=== PATIENT | female | born 1950 | race Caucasian/White ===

== ENCOUNTER 2019-08-02 10:02 | Emergency (ER) | payer MEDICARE ==
[~2019-08-02] VITALS: Ht 165.1 cm; Wt 67.0 kg
[~2019-08-02 10:02] MED LIST: ANTIVERT PO; ASPIRIN LOW DOS81 M2 PO; B COMPLE2 PO; C 250 PO; CO-Q 101 CAP PO; FIBER THERAPY500 MG PO; FOLIC ACID1 MG PO; MAGNESIUM-OX400 MG PO; MULTI VIT PO; NIACIN500 M2 PO; PROBIOTIC1 TAB PO; RED YEAST RICE EXTRA; ZOFRAN ODT4 MG PO; [UNRECOGNIZED DRUG - OTHER]
[2019-08-02] MEDS ORDERED: VOLTAREN - GENE75 MG PO (11:40)
[2019-08-02 11:54] VITALS: BP 128/74
== END 2019-08-02 12:02 | disposition home or self-care (01) ==
LOC: ED 10:02
DX: M19.041 Primary osteoarthritis, right hand (principal)

== ENCOUNTER 2022-09-18 09:40 | Emergency (ER) | payer MEDICARE ==
[2022-09-18] VITALS (7 sets, daily range): BP systolic 122–149; BP diastolic 58–77
[~2022-09-18] VITALS: Ht 165.1 cm; Wt 68.0 kg
[~2022-09-18 09:40] MED LIST changes: +VOLTAREN - GENE75 MG PO
[2022-09-18 10:04] LABS: HEMATOCRIT 41.6 % (37.0-47.0); HEMOGLOBIN 14.3 g/dl (12.0-16.0); IMMATURE GRANULOCYTES 0.3 % (0.0-5.0); MEAN CELL VOLUME 90.6 fL CALC (80.0-100.0); MEAN CORPUSCULAR HGB 31.2 pG CALC (26.0-32.0); MEAN CORPUSCULAR HGB CONC 34.4 g/dL CAL (32.0-36.0); NEUT# 5.97 thou/uL (2.00-7.15); RED BLOOD COUNT 4.59 mill/uL (4.20-5.60)
[2022-09-18 10:18] LABS: ALBUMIN 4.6 g/dL (3.2-5.0); ALKALINE PHOSPHATASE 57 u/l (38-126); ANION GAP 15 (6-22 (CALC)); BUN 16 mg/dL (8-23); BUN/CREATININE RATIO 21 (12-20 (CALC)); CARBON DIOXIDE 26 mmol/l (22-30); CHLORIDE 105 mmol/l (95-108); CREATININE 0.8 mg/dL (0.5-1.0); GFR FOR AFR.AMER. > 60 ML/MIN (>=60 (CALC)); GFR OTHER RACES > 60 ML/MIN (>=60 (CALC)); LIPASE 38 u/l (23-300); POTASSIUM 3.8 mmol/l (3.5-5.1); SGOT/AST 30 u/l (9-36); SODIUM 142 mmol/l (137-146); TOTAL PROTEIN 7.2 g/dL (6.3-8.2)
[2022-09-18 12:48] LABS: URINE BILIRUBIN - DIPSTICK NEGATIVE (NEGATIVE); URINE BLOOD DIPSTICK NEGATIVE (NEGATIVE); URINE COLOR YELLOW; URINE GLUCOSE - DIPSTICK NEGATIVE (NEGATIVE); URINE KETONE TRACE mg/dL (NEGATIVE); URINE LEUK ESTERASE NEGATIVE (NEGATIVE); URINE PROTEIN - DIPSTICK NEGATIVE (NEG-TRACE); URINE SPECIFIC GRAVITY 1.015; URINE UROBILINOGEN - DIPSTICK 0.2 E.U./dL (0.2)
[2022-09-18 12:50] LABS: URINE NITRITE - DIPSTICK NEGATIVE (Negative)
== END 2022-09-18 11:48 | disposition home or self-care (01) ==
LOC: ED 09:40
PROVIDERS: Family Medicine
DX: J02.9 Acute pharyngitis, unspecified (principal); Z20.822 Contact with and (suspected) exposure to COVID-19